=== PATIENT | female | born 1985 | race Caucasian/White ===

== ENCOUNTER 2019-08-04 12:54 | Emergency (ER) | payer MEDICAID ==
[~2019-08-04] VITALS: Ht 152.4 cm; Wt 55.6 kg
[2019-08-04 13:03] VITALS: BP 12/74
--- NOTE | 2019-08-04 13:29 | NUR ---
34/F BIB FRIEND FROM [place] C/O N/V, HEADACHE, SORE THROAT, POSTERIOR NECK PAIN, RUQ PAIN, DIZZINESS, GENERALIZED WEAKNESS, SUBJECTIVE FEVER AT NIGHTTIME, CHILLS X 10 DAYS AFTER TICK BITE ON RT ANTERIOR THIGH. PT STATES SHE REMOVED ALL PARTS OF THE TICK. NO SWELLING NOTED. PT DENIES BULLS EYE LESION. VSS;BEDRAILS UP X1; ERMD TO EVALUATE. HX- GASTRITIS Addendum: 08/04/19 at 1336 by ERMIAS TICK BITE 11 DAYS AGO DENIES VISION CHANGES
--- NOTE | 2019-08-04 14:23 | NUR ---
XRAY AT BEDSIDE
[2019-08-04] MEDS: IBUPROFEN 600 MG TAB PO ONE (14:36)
--- NOTE | 2019-08-04 14:36 | NUR ---
FLU SWAB COLLECTED
--- NOTE | 2019-08-04 14:36 | NUR ---
MOTRIN PO ADMINISTERED
--- NOTE | 2019-08-04 14:58 | NUR ---
URINE COLLECTED IN TRIAGE
--- NOTE | 2019-08-04 14:58 | NUR ---
LAB AT BEDSIDE
[2019-08-04 15:29] LABS: BASOPHILS % (AUTO) 0.2 % (0.0-2.0); EOSINOPHILS % (AUTO) 0.3 % (0.0-4.0); HEMATOCRIT 40.7 % (36-48); LYMPHOCYTES # (AUTO) 2.7 K/uL (2.5-16.5); LYMPHOCYTES % (AUTO) 33.8 % (20.5-51.1); MEAN CORPUSCULAR HEMOGLOBIN 30 pg (27-31); MEAN CORPUSCULAR HGB CONC 32 g/dL (33-37); MEAN CORPUSCULAR VOLUME 92.4 fL (80-94); MONOCYTES # (AUTO) 0.6 K/uL (0.8-1.0); MONOCYTES % (AUTO) 7.9 % (1.7-9.3); NEUTROPHILS # (AUTO) 4.6 K/uL (1.8-7.7); NEUTROPHILS % (AUTO) 57.8 % (42.2-75.2); PLATELET COUNT (AUTO) 350 K/uL (140-450); RED CELL DISTRIBUTION WIDTH 13.5 % (11.6-13.7); WHITE BLOOD COUNT (AUTO) 7.9 K/uL (4.8-10.8)
[2019-08-04 15:37] LABS: BARBITURATE, URINE NEG. ng/ml (NEG <=200); BENZODIAZEPINE, URINE NEG. ng/mL (NEG <=200); CANNABINOID, URINE NEG. ng/mL (NEG <=50); COCAINE, URINE NEG. ng/mL (NEG <=300); OPIATE, URINE NEG. ng/mL (NEG <=2000); PHENCYCLIDINE SCREEN,URINE NEG. ng/mL (NEG <=25)
[2019-08-04 15:41] LABS: APPEARANCE,URINE CLOUDY (CLEAR); BILIRUBIN,URINE NEGATIVE (NEGATIVE); BLOOD, URINE 3+ (NEGATIVE); COLOR,URINE AMBER (YELLOW); LEUKOCYTE ESTERASE ,URINE NEGATIVE (NEGATIVE); NITRITE, URINE NEGATIVE (NEGATIVE); UGLUCOSE NEGATIVE (NEGATIVE)
[2019-08-04 15:43] LABS: ANION GAP 10.2 (8-16); CARBON DIOXIDE 29.6 mmol/L (21-32); CREATININE 0.6 mg/dL (0.6-1.3); POTASSIUM 3.8 mmol/L (3.5-5.1)
[2019-08-04 15:56] LABS: RBC,URINE TOO NUMEROUS TO COUN /HPF (0-5); WBC,URINE 0-5 /HPF (0-5)
[2019-08-04 15:58] LABS: ALBUMIN 3.9 g/dL (3.4-5.0); FREE T4 (FREE THYROXINE) 1.31 ng/dL (0.76-1.46); THYROID STIMULATING HORMONE 1.86 uIU/mL (0.34-3.74); TOTAL BILIRUBIN 0.3 mg/dL (0.0-1.0)
[2019-08-04] MEDS: ONDANSETRON 4 MG ODT PO ONE (16:08)
[2019-08-04] MEDS: HYDROcodone/APAP 5/325 MG 1 TAB TAB PO ONE (16:09)
--- NOTE | 2019-08-04 16:09 | NUR ---
PT C/O 10/ H/A PAIN. NORCO AND ZORFAN ADMINISTERED PO
--- NOTE | 2019-08-04 16:37 | NUR ---
PT CONTINUES TO C/O 05/04 PAIN. JAN ANDERSON NOTIFIED
[2019-08-04 17:50] VITALS: BP 118/65
--- NOTE | 2019-08-04 17:50 | NUR ---
Patient discharged with v/s stable. Written and verbal after care instructions given and explained REGARDING VIRAL SYNDROME AND MYALGIA. Patient alert, oriented and verbalized understanding of instructions. Ambulatory with steady gait. All questions addressed prior to discharge. ID band removed. Patient advised to follow up with PMD. Rx of IBUPROFEN given. Patient educated on indication of medication including possible reaction and side effects. Opportunity to ask questions provided and answered. PT STILL C/O 10/10 PAIN. INSTRUCTED PT TO USE DISTRACTION TECHNIQUE, SUGGESTED TV OR MUSIC USE
== END 2019-08-04 17:50 | disposition home or self-care (01) ==
LOC: MED 12:54
DX: B34.9 Viral infection, unspecified (principal)
CPT/HCPCS: 36415; 71045; 80053; 80305; 81001; 83690; 84439; 84443; 85025; 87804; 93005; 99284; Q0092; Q0162